=== PATIENT | male | born 1970 | race Caucasian/White ===

== ENCOUNTER 2021-06-23 23:26 | Emergency (ER) | payer OTHER ==
[~2021-06-23] VITALS: Ht 177.8 cm; Wt 81.7 kg
[2021-06-24 00:59] VITALS: BP 158/104
== END 2021-06-24 00:59 | disposition home or self-care (01) ==
LOC: M.ERS 23:26
DX: S62.336A Displaced fracture of neck of fifth metacarpal bone, right hand, initial encounter for closed fracture (principal); W22.01XA Walked into wall, initial encounter; Y93.89 Activity, other specified; Y92.89 Other specified places as the place of occurrence of the external cause; Y99.8 Other external cause status